=== PATIENT | female | born 2000 | race African-American/Black ===

== ENCOUNTER → 2024-05-31 | Outpatient (REF) | payer OTHER | LOC: M LAB REF 19:20 | PROVIDERS: ATTEND Physician Assistant | DX: R19.7 Diarrhea, unspecified (principal) ==

== ENCOUNTER 2024-10-08 16:21 | Emergency (ER) | payer OTHER ==
[~2024-10-08] VITALS: Ht 167.6 cm; Wt 72.2 kg
[2024-10-08 20:33] LABS: HCG, SERUM QUALITATIVE NEGATIVE (NEGATIVE)
[2024-10-08] MEDS ORDERED: IBUP-1022 PO (20:37)
[2024-10-08] MEDS ORDERED: BENZ200C70 PO (20:37)
[2024-10-08] MEDS ORDERED: MUCI600T31 PO (20:37)
[2024-10-08 20:42] VITALS: BP 116/55; TEMP 98.1; O2SAT 100
[2024-10-08] MEDS: BENZONATATE 100MG CAPSULE PO ONE (20:43)
== END 2024-10-08 20:45 | disposition home or self-care (01) ==
LOC: M ED 16:21
DX: J06.9 Acute upper respiratory infection, unspecified (principal); B34.1 Enterovirus infection, unspecified; Z91.09 Other allergy status, other than to drugs and biological substances; Z79.1 Long term (current) use of non-steroidal anti-inflammatories (NSAID); Z79.899 Other long term (current) drug therapy